=== PATIENT | male | born 1965 | race Caucasian/White ===

== ENCOUNTER → 2016-11-17 | Outpatient (CLI) | payer BC ==
--- OUTSIDE RECORDS SUMMARY | 2016-11-17 15:48 | XMS REPORT ---
Author Author GERSON BISHOP [facility] e[employer] Address Unknown Phone Unavailable Care Team Providers Care Pipe Line Walker Name Role Phone GERSON BISHOP CP Unavailable Allergies No Known Allergies Problems Problem Type Condition Code Onset Dates Condition Status Problem Need for prophylactic vaccination and inoculation, Influenza V04.81 Active Assessment Encounter for immunization Z23 Active Problem DTAP TEST V06.1 Active Medications No Known Medications Procedures Procedure Coding System Code Date SINGLE IMMUNIZATION ADMIN CPT-4 72371 Jul 04, 2015 FLUARIX QUAD (3 & UP)-GSK-2014 CPT-4 74340 Jul 04, 2015 Results No Known Results Immunizations Vaccine Administration Date FLUARIX QUAD (3 & UP)-GSK-2014Jul 04, 2015 Summary Purpose eClinicalWorks Submission
--- NOTE | 2016-11-17 16:03 | Diagnostic Imaging Report ---
Indication: Cervicalgia 4 views of the cervical spine were obtained. There is normal height and alignment of the vertebral bodies. There is mild spondylosis at C5-6 and C6-7 anteriorly. There is no spinal canal encroachment. There is no mass. There is no fracture. Impression: There are mild degenerative changes present. No acute abnormality is seen. Dictated by: Dictated on workstation # [id number]
== END ==
LOC: RAD 15:44
DX: M47.812 Spondylosis without myelopathy or radiculopathy, cervical region (principal)
CPT/HCPCS: 72040

== ENCOUNTER 2018-02-28 14:30 | Outpatient (CLI) | payer BC ==
[~2018-02-28] VITALS: Ht 165.1 cm; Wt 59.0 kg
== END 2018-02-28 15:08 ==
LOC: PREOP 14:30
PROVIDERS: ATTEND Surgery
DX: Z01.818 Encounter for other preprocedural examination (principal); K40.20 Bilateral inguinal hernia, without obstruction or gangrene, not specified as recurrent

== ENCOUNTER 2018-03-02 06:11 | Day surgery (SDC) | payer BC ==
[~2018-03-02] VITALS: Ht 165.1 cm; Wt 59.0 kg
--- OUTSIDE RECORDS SUMMARY | 2018-03-02 06:14 | XMS REPORT ---
Author Author GERSON BISHOP [facility] Address [address] [place] [address] Care Team Providers Care Apparel Stock Checker Name Role Phone GERSON BISHOP Unavailable PROBLEMS No Known Problems ALLERGIES No Information ENCOUNTERS Encounter Location Date Diagnosis [facility] [address] [id number] Sep, Low back pain M54.5 [facility] [address] [id number] May, Encounter for immunization Z23 [facility] [address] [id number] May, Encounter for immunization Z23 [facility] [address] [id number] Dec, Impacted cerumen of left ear H61.22 [facility] [id number] [place] [id number] Dec, Rhinitis J31.0 [facility] [id number] [place] [id number] Oct, Acute bronchitis, unspecified J20.9 and Cough R05 [facility] [id number] [place] [phone] Jun, Encounter for immunization Z23 [facility] [address] [phone] Jun, [facility] [address] [phone] Jun, [facility] [address] [phone] Jun, [facility] [address] [facility] [id number] [place] [address] Jun, [facility] [address] [facility] [id number] [place] [address] Jun, [facility] [address] [facility] [id number] [place], [place] [address] Jun, IMMUNIZATIONS Vaccine Route Administration Date Status FLUARIX QUAD (3 AND UP) 2017 IM Intramuscular Jun 15, 2017 Administered SOCIAL HISTORY Never Assessed REASON FOR VISIT Flu vaccine-[facility] ADMINISTRATIVE ASSISTANT DATA ENTRY/RELIEF COOK PLAN OF CARE VITAL SIGNS MEDICATIONS No Known Medications RESULTS No Results PROCEDURES Procedure Date Ordered Result Body Site FLUARIX QUAD (3 & UP)-GSK-2014Jun 15, 2017 SINGLE IMMUNIZATION ADMIN Jun 15, 2017 INSTRUCTIONS MEDICATIONS ADMINISTERED No Known Medications
--- OUTSIDE RECORDS SUMMARY | 2018-03-02 06:14 | XMS REPORT ---
Author Author GERSON BISHOP [facility] [place] Address [address] [place] [address] Care Team Providers Care Cnc Programmer Name Role Phone GERSON BISHOP Unavailable PROBLEMS Type Condition ICD9-CM Code [id number] Code Onset Dates Condition Status SNOMED Code Problem DTAP TEST V06.1 Active Problem Need for prophylactic vaccination and inoculation, Influenza V04.81 Active 838357458 Assessment Encounter for immunization Z23 May, Active [id number] ALLERGIES Unknown Allergies SOCIAL HISTORY No smoking Hx information available PLAN OF CARE VITAL SIGNS MEDICATIONS Unknown Medications RESULTS No Results PROCEDURES Procedure Date Ordered Related Diagnosis Body Site FLUARIX QUAD P-FREE 3 AND UP .50 2015Jun 23, 2016 SINGLE IMMUNIZATION ADMIN Jun 23, 2016 IMMUNIZATIONS Vaccine Route Administration Date Status FLUARIX QUAD P-FREE 3 AND UP .50 2015 IM Intramuscular Jun 23, 2016 Administered
--- OUTSIDE RECORDS SUMMARY | 2018-03-02 06:14 | XMS REPORT ---
Author Author GERSON BISHOP [facility] eClinicalWorks Address Unknown Phone Unavailable Care Team Providers Care Senior Client Advisor Name Role Phone GERSON BISHOP CP Unavailable Allergies No Known Allergies Problems Problem Type Condition Code Onset Dates Condition Status Problem Need for prophylactic vaccination and inoculation, Influenza V04.81 Active Assessment Encounter for immunization Z23 Active Problem DTAP TEST V06.1 Active Medications No Known Medications Procedures Procedure Coding System Code Date SINGLE IMMUNIZATION ADMIN CPT-4 26339 Jul 04, 2015 FLUARIX QUAD (3 & UP)-GSK-2014 CPT-4 46415 Jul 04, 2015 Results No Known Results Immunizations Vaccine Administration Date FLUARIX QUAD (3 & UP)-GSK-2014Jul 04, 2015 Summary Purpose eClinicalWorks Submission
[2018-03-02 06:30] VITALS: BP 133/89
[2018-03-02] MEDS ORDERED: ROCURONIUM 10 MG/ML 5 ML SYRINGE IV ONE ×2 (06:34→08:34)
[2018-03-02] MEDS ORDERED: GLYCOPYRROLATE 0.2 MG/ML (ROBINUL) 2 ML VIAL ONE (06:34)
[2018-03-02] MEDS ORDERED: NEOSTIGMINE 1 MG/ML 5 ML SYRINGE ONE (06:34)
[2018-03-02] MEDS ORDERED: proPOfol 200 MG/20 ML (DIPRIVAN) VIAL IV ONE (06:34)
[2018-03-02] MEDS ORDERED: LIDOCAINE PF 2% 5 ML (XYLOCAINE) VIAL ONE (06:34)
[2018-03-02] MEDS ORDERED: SEVOFLURANE (ULTANE) 15 ML INHAL SOLN ONE ×6 (06:34→08:16)
[2018-03-02] MEDS ORDERED: DEXAMETHASONE 10 MG/ML (DECADRON) 1 ML VIAL ONE (06:34)
[2018-03-02] MEDS ORDERED: fentaNYL INJECTION 100 MCG/2 ML AMP ONE ×2 (06:34→09:13)
[2018-03-02] MEDS ORDERED: ONDANSETRON 4 MG/2 ML (SDV) Z0FRAN ONE (06:34)
[2018-03-02] MEDS ORDERED: MIDAZOLAM 2 MG/2 ML (VERSED) VIAL ONE (06:34)
[2018-03-02] MEDS ORDERED: ceFAZolin INJECTION 1,000 MG in NS (IVPB) 50 ML IV ONE (06:45)
[2018-03-02] MEDS ORDERED: BUP/EPI 0.5% 1:200,000 (SENSORCAINE) 30 ML VIAL ONE (06:50)
[2018-03-02 06:54] LABS: BASOPHILS % (AUTO) 0 % (0-10); EOSINOPHILS # (AUTO) 0.2 10^3/uL (0.0-0.3); EOSINOPHILS % (AUTO) 3 % (0-10); HEMATOCRIT 44 % (40-54); HEMOGLOBIN 16.3 G/DL (13.3-17.7); LYMPHOCYTES % (AUTO) 28 % (12-44); MEAN CORPUSCULAR HEMOGLOBIN 32 PG (25-34); MEAN CORPUSCULAR HGB CONC 37 G/DL (32-36); MEAN CORPUSCULAR VOLUME 84 FL (80-99); MEAN PLATELET VOLUME 8.2 FL (7.4-10.4); MONOCYTES # (AUTO) 0.8 X 10^3 (0.0-1.0); MONOCYTES % (AUTO) 10 % (0-12); NEUTROPHILS # (AUTO) 4.2 X 10^3 (1.8-7.8); NEUTROPHILS % (AUTO) 58 % (42-75); PLATELET COUNT 299 10^3/uL (130-400); RED BLOOD COUNT 5.18 10^6/uL (4.35-5.85); RED CELL DISTRIBUTION WIDTH 12.4 % (10.0-14.5); WHITE BLOOD COUNT 7.2 10^3/uL (4.3-11.0)
[2018-03-02] MEDS: LACTATED RINGERS 1,000 ML IV PRN ×2 (06:54→07:38)
[2018-03-02] MEDS ORDERED: ceFAZolin 1,000 MG (ANCEF) VIAL ONE (06:55)
[2018-03-02] MEDS ORDERED: NS (IVPB) 50 ML ONE (06:55)
--- NOTE | 2018-03-02 07:07 | Progress Note-Pre Operative ---
Pre-Operative Progress Note H&P Reviewed The H&P was reviewed, patient examined and no changes noted. Date Seen by Provider: February 17, 2018 Time Seen by Provider: 10:00 Date H&P Reviewed: Mar 02, 2018 Time H&P Reviewed: 07:07 Pre-Operative Diagnosis: Bilateral ing. CARMELA Montague MD Mar 02, 2018 7:07 am
[2018-03-02] MEDS ORDERED: KETOROLAC 30 MG/ML VIAL ONE (09:21)
--- NOTE | 2018-03-02 09:34 | Operative Report ---
Operative Report Date of Procedure/Surgery Mar 02, 2018 Surgeon (s) CARMELA SYKES MD Small Machine Bindery Operator (s): N/A Post-Operative Diagnosis Same Procedure Performed Robotic assisted repair of bilateral inguinal herniae with mesh Description of Procedure Anesthesia Type: General Estimated blood loss (mL): Minimal Specimen(s) collected/removed Right hernia contents Description of the Procedure Indication for the procedure: [facility] right inguinal hernia. Clinically examination confirmed a contralateral hernia as well. He was offered repair using minimally invasive technique with robotic assistance and mesh reinforcement. Informed consent was obtained after reviewing the operative details and complications of hematoma, infection of the mesh and recurrence of the hernia. Description of procedure: He was placed supine on the operative table and general anesthesia induced using an endotracheal tube. A gram of Ancef was administered intravenously as prophylaxis against wound infection. Sequential compression devices were placed around his legs, to minimize the risk of venous thrombosis. A Lovelace catheter was placed compress the bladder during surgery. It was removed at the end of the operation. Abdomen was prepared and draped in the usual sterile manner. Pneumoperitoneum was established using a Veress needle introduced over the supraumbilical region. Intra-abdominal pressure was maintained at 15 mmHg, using carbon dioxide insufflation. A 12 mm trocar was placed and anatomy visualized using the high definition, 3-dimensional laparoscope associated with da Usha system. Bilateral, direct inguinal herniae were confirmed. An 8 mm trocar was placed over each side of the abdomen and the patient placed in steep Trendelenburg position, to displace loops of bowel out of the pelvis. I began the dissection on the right side. Peritoneum was incised laterally, entering the pre-peritoneal space. Dissection was continued across the median umbilical ligament, displaying Mario's ligament. Extrapericardial fat was contained within the direct hernia, which was reduced. There was no indirect sac. Transversalis fascia was plicated using a 20V LOC suture and a 13 x 8.5 cm polypropylene mesh, preshaped to fit into the preperitoneal space used for reinforcement. It was secured to Mario's ligament and the anterior abdominal musculature with 2-0 Vicryl sutures using robotic assistance. Intra-abdominal pressure was then reduced to 12 mmHg to facilitate closing the peritoneum without any tension. This was achieved using a 20V LOC suture with robotic assistance. On the left side, a similar dissection was performed. A medium-sized mesh 13 x 8.5 cm in size was used. Peritoneum was closed in a similar fashion. The fascia over all 3 incisions was closed using #1 Vicryl. Skin incisions were closed using 4-0 Vicryl, in a subcuticular fashion. 0.5 percent Marcaine with epinephrine was infiltrated along the incisions, both pre-emptively and at the conclusion of the operation. He tolerated the procedure well, was extubated in the operating room and taken to the recovery room in a stable condition. Findings of the Procedure See op report Allergies and Home Medications Allergies Coded Allergies: No Known Drug Allergies (Unverified , 02/28/18) Home Medications No Active Prescriptions or Reported Meds Patient Home Medication List Home Medication List Reviewed: Yes CARMELA SYKES MD Mar 02, 2018 9:34 am
[2018-03-02] MEDS ORDERED: ACHD5005 PO (09:35)
--- NOTE | 2018-03-02 09:36 | Discharge Inst-Simple/Standard ---
Discharge Inst-Standard Discharge Medications New, Converted or Re-Newed RX: RX on Chart Patient Instructions/Follow Up Plan of Care/Instructions/FU: Band-Aids off in 48 hours. Follow-up in 4 weeks. Activity as Tolerated: No Goal: No lifting over 10 pounds Discharge Diet: No Restrictions CARMELA SYKES MD Mar 02, 2018 9:36 am
[2018-03-02] MEDS ORDERED: morphine INJ 10 MG/ML 1ML (SYR OR VIAL) ONE (09:39)
[2018-03-02] MEDS: morphine INJ 10 MG/ML 1ML (SYR OR VIAL) IVP PRN ×2 (09:43→09:53)
[2018-03-02] MEDS ORDERED: ONDANSETRON 4 MG/2 ML (SDV) Z0FRAN IVP PRN (09:45)
[2018-03-02] MEDS: HYDROmorphone 1 MG/ML (DILAUDID) 1 ML SYRINGE IV PRN ×2 (10:25→10:35)
[2018-03-02 10:50] VITALS: BP 117/75
[2018-03-02] MEDS ORDERED: HYDROcodone/APAP 5 MG/325 MG (LORTAB) TAB ONE (10:52)
[2018-03-02] MEDS: HYDROcodone/APAP 5 MG/325 MG (LORTAB) TAB PO PRN ×2 (11:07→12:09)
[2018-03-02 11:20] VITALS: BP 108/62
[2018-03-02 12:05] VITALS: BP 112/54
--- NOTE | 2018-03-02 13:02 | Anesthesia-General Post-Op ---
General Patient Condition Mental Status/LOC: Same as Preop Cardiovascular: Satisfactory Nausea/Vomiting: Absent Respiratory: Satisfactory Pain: Controlled Complications: Absent Post Op Complications Complications None Follow Up Care/Instructions Patient Instructions None needed. Anesthesia/Patient Condition Patient Condition Patient is doing well, no complaints, stable vital signs, no apparent adverse anesthesia problems. No complications reported per nursing. MOOK BURCH CRNA Mar 02, 2018 13:02
== END 2018-03-02 12:17 | disposition home or self-care (01) ==
LOC: SDC 06:11
PROVIDERS: ATTEND Surgery
DX: K40.90 Unilateral inguinal hernia, without obstruction or gangrene, not specified as recurrent (principal)
CPT/HCPCS: 36415; 85025; 87081; 88302; 94664

== ENCOUNTER → 2022-02-06 | Outpatient (CLI) | payer BC ==
[~2022-02-06] MED LIST: ACHD5005 PO
--- NOTE | 2022-02-06 17:33 | Diagnostic Imaging Report ---
INDICATION: Left hip pain AP and oblique views of the left hip are obtained. No fracture or acute bony abnormality seen. Left hip joint space appears unremarkable. There is no lytic or blastic lesion. IMPRESSION: Negative left hip. Dictated by: Dictated on workstation # [id number]
== END ==
LOC: RAD 15:24
DX: M25.552 Pain in left hip (principal)
CPT/HCPCS: 73502